=== PATIENT | female | born 1980 | race Caucasian/White ===

== ENCOUNTER 2020-06-04 09:37 | Emergency (ER) | payer OTHER ==
[2020-06-04 09:49] VITALS: BP 109/56; PULSE 118; TEMP 98; BMI 24.7
[2020-06-04] MEDS ORDERED: IBUPROFEN 600 MG TABLET (FP) PO ONE ×3 (10:01→10:29)
== END 2020-06-04 11:51 | disposition home or self-care (01) ==
LOC: JER 09:37
DX: J18.1 Lobar pneumonia, unspecified organism (principal)
CPT/HCPCS: 71045-TC-FY; 87804; 99284-25; C9803; U0003

== ENCOUNTER 2020-06-16 14:29 | Inpatient (IN) | payer OTHER ==
[2020-06-16 16:51] LABS: BASO % 0.6 % (0-2.0); EOS % 0.1 % (0-4.5); HEMATOCRIT 32.9 % (32.4-45.2); HEMOGLOBIN 10.8 GM/dL (10.7-15.3); LYMPH % 12.2 % (8-40); MCH 26.2 pg (25.7-33.7); MCHC 32.9 g/dl (32.0-36.0); MEAN CELL VOLUME 79.6 fl (80-96); MEAN PLT VOLUME 6.8 fl (7.5-11.1); NEUT % 77.1 % (42.8-82.8); PLATELET COUNT 658 K/MM3 (134-434); RBC 4.13 M/mm3 (3.60-5.2); RDW 14.7 % (11.6-15.6)
[2020-06-16 17:06] LABS: INR 1.27 (0.83-1.09); PROTHROMBIN TIME (PATIENT) 15.3 SEC (9.7-13.0)
[2020-06-16 17:08] LABS: CHLORIDE 101 mmol/L (98-107); POTASSIUM 3.8 mmol/L (3.5-5.1); SODIUM 136 mmol/L (136-145)
[2020-06-16 17:11] LABS: ALBUMIN 2.1 g/dl (3.4-5.0); ANION GAP 9 MMOL/L (8-16); CO2 26 mmol/L (21-32); GLUCOSE,RANDOM 117 mg/dL (74-106)
[2020-06-16 17:14] LABS: CREATININE 0.6 mg/dL (0.55-1.3); SGOT/AST 118 U/L (15-37); SGPT/ALT 98 U/L (13-61)
[2020-06-16 17:16] LABS: BILIRUBIN,TOTAL 0.2 mg/dL (0.2-1); TOT PROT 7.5 g/dl (6.4-8.2)
[2020-06-16 17:17] LABS: ALK PHOS 83 U/L (45-117)
[2020-06-16] MEDS ORDERED: VANCOMYCIN 1 GM in D5W (PRE-DOCKED) 1,000 MG/250 ML IVPB ONE (18:24)
[2020-06-16] MEDS ORDERED: PIPERACILLIN/TAZOB 3.375 GM 3.375 GM in DEXTROSE 5%-WATER - 50 ML IVPB ONE (18:24)
[2020-06-16] MEDS ORDERED: PIPERACILLIN/TAZOB 3.375 GM 3.375 GM/50 ML BAG IVPB ONE (19:09)
[2020-06-16] MEDS ORDERED: VANCOMYCIN 1 GRAM (PRE-DOCKED) 1,000 MG/250 ML BAG IVPB ONE (19:48)
[2020-06-16] MEDS ORDERED: KETOROLAC TROMETHAMINE 15 MG/ML VIAL IVPUSH ONE (21:03)
[2020-06-16] MEDS ORDERED: KETOROLAC TROMETHAMINE 15 MG/ML VIAL ONE (21:03)
[2020-06-16] MEDS ORDERED: MORPHINE SULFATE 2 MG/ML VIAL IVPUSH PRN (23:22)
[2020-06-16] MEDS ORDERED: ALBUTEROL SO4 HFA INHALER IH PRN (23:22)
[2020-06-16] MEDS ORDERED: VANCOMYCIN 1 GM PREMIX - 1 GM/200 ML BAG IVPB SCH (23:30)
[2020-06-17] MEDS ORDERED: PIPERACILLIN/TAZOB 3.375 GM 3.375 GM in DEXTROSE 5%-WATER - 50 ML IVPB SCH (02:00)
[2020-06-17] MEDS ORDERED: PIPERACILLIN/TAZOB 3.375 GM 3.375 GM/50 ML BAG IVPB ONE ×3 (02:35→17:34)
[2020-06-17] MEDS: PIPERACILLIN/TAZOB 3.375 GM 3.375 GM in DEXTROSE 5%-WATER - 50 ML IVPB SCH ×4 (02:41→21:36)
[2020-06-17] MEDS ORDERED: VANCOMYCIN 1 GRAM (PRE-DOCKED) 1,000 MG/250 ML BAG IVPB SCH (08:00)
[2020-06-17 08:07] LABS: BASO % 0.2 % (0-2.0); HEMATOCRIT 31.4 % (32.4-45.2); HEMOGLOBIN 10.3 GM/dL (10.7-15.3); LYMPH % 12.2 % (8-40); MCH 26.3 pg (25.7-33.7); MCHC 32.8 g/dl (32.0-36.0); MEAN CELL VOLUME 80.3 fl (80-96); MONO % 9.6 % (3.8-10.2); PLATELET COUNT 576 K/MM3 (134-434); RBC 3.92 M/mm3 (3.60-5.2); RDW 14.7 % (11.6-15.6); WHITE BLOOD COUNT 13.1 K/mm3 (4.0-10.0)
[2020-06-17 08:29] LABS: POTASSIUM 3.9 mmol/L (3.5-5.1)
[2020-06-17 08:31] LABS: CALCIUM 7.8 mg/dL (8.5-10.1)
[2020-06-17 08:32] LABS: BLOOD UREA NITROGEN 21.2 mg/dL (7-18)
[2020-06-17 08:35] LABS: CREATININE 1.6 mg/dL (0.55-1.3)
[2020-06-17 08:37] LABS: BILIRUBIN,TOTAL 0.3 mg/dL (0.2-1); TOT PROT 6.7 g/dl (6.4-8.2)
[2020-06-17] MEDS ORDERED: VANCOMYCIN 1 GRAM (PRE-DOCKED) 1,000 MG/250 ML BAG IVPB ONE (10:11)
[2020-06-17] MEDS ORDERED: ENOXAPARIN NA (PORCINE) 40 MG/0.4 ML DISP.SYRIN SQ ONE (10:28)
[2020-06-17] MEDS: ENOXAPARIN NA (PORCINE) 40 MG/0.4 ML DISP.SYRIN SQ SCH (12:00)
[2020-06-17] MEDS ORDERED: ALBUTEROL SO4 HFA INHALER IH ONE (18:01)
[2020-06-17] MEDS ORDERED: DEXTROSE 5%-WATER - 50 ML IVPB ONE (20:26)
[2020-06-17] MEDS ORDERED: PIPERACILLIN/TAZOBACTAM 3.375 GM VIAL IVPB ONE (20:26)
[2020-06-18] MEDS ORDERED: DEXTROSE 5%-WATER - 50 ML IVPB ONE ×3 (01:38→21:47)
[2020-06-18] MEDS ORDERED: PIPERACILLIN/TAZOBACTAM 3.375 GM VIAL IVPB ONE ×2 (01:38→10:04)
[2020-06-18] MEDS: PIPERACILLIN/TAZOB 3.375 GM 3.375 GM in DEXTROSE 5%-WATER - 50 ML IVPB SCH ×2 (02:43→10:19)
[2020-06-18 08:49] LABS: BASO % 0.1 % (0-2.0); HEMATOCRIT 31.1 % (32.4-45.2); HEMOGLOBIN 10.3 GM/dL (10.7-15.3); LYMPH % 16.2 % (8-40); MCH 26.4 pg (25.7-33.7); MEAN CELL VOLUME 80.1 fl (80-96); MEAN PLT VOLUME 6.9 fl (7.5-11.1); MONO % 8.7 % (3.8-10.2); PLATELET COUNT 492 K/MM3 (134-434); RBC 3.89 M/mm3 (3.60-5.2); RDW 14.6 % (11.6-15.6); WHITE BLOOD COUNT 9.4 K/mm3 (4.0-10.0)
[2020-06-18 08:55] LABS: INR 1.26 (0.83-1.09); PROTHROMBIN TIME (PATIENT) 15.1 SEC (9.7-13.0)
[2020-06-18] MEDS ORDERED: VANCOMYCIN 1 GRAM (PRE-DOCKED) 1,000 MG/250 ML BAG IVPB SCH (10:00)
[2020-06-18] MEDS: ENOXAPARIN NA (PORCINE) 40 MG/0.4 ML DISP.SYRIN SQ SCH (10:19)
[2020-06-18 10:32] LABS: POTASSIUM 4.1 mmol/L (3.5-5.1)
[2020-06-18 10:36] LABS: CALCIUM 7.8 mg/dL (8.5-10.1)
[2020-06-18 10:37] LABS: ALBUMIN 1.6 g/dl (3.4-5.0)
[2020-06-18 10:42] LABS: BILIRUBIN,TOTAL 0.4 mg/dL (0.2-1); CREATININE 4.5 mg/dL (0.55-1.3); TOT PROT 6.1 g/dl (6.4-8.2)
[2020-06-18 12:49] LABS: ANISOCYTOSIS 2+; MACROCYTOSIS 0; PLATELET ESTIMATE INCREASED
[2020-06-18] MEDS ORDERED: SODIUM CHLORIDE 500 ML IV STA (14:39)
[2020-06-18] MEDS ORDERED: SODIUM CHLORIDE 1,000 ML IV SCH (14:45)
[2020-06-18] MEDS ORDERED: ACETAMINOPHEN 1000 MG/100 ML VIAL (NON FORMULARY) IVPB PRN (16:23)
[2020-06-18] MEDS: SODIUM CHLORIDE 1,000 ML IV SCH (17:20)
[2020-06-18] MEDS ORDERED: PIPERACILLIN/TAZOBACTAM 2.25 GM VIAL IVPB ONE (21:47)
[2020-06-18] MEDS: HEPARIN NA (PORCINE) 5,000 UNITS/ML 1ML VIAL SQ SCH (21:53)
[2020-06-18] MEDS: PIPERACILLIN/TAZOB 2.25 GM 2.25 GM in DEXTROSE 5%-WATER - 50 ML IVPB SCH (21:53)
[2020-06-18 22:09] LABS: EPI CELLS 6 /uL (0-25.1); HYALINE CASTS 1 /uL (0-3.1); PH,URINE 5.5 (5.0-8.0); URINE APPEARANCE CLEAR; URINE BACTERIA 5 /uL (0-1359); URINE BILIRUBIN NEGATIVE (NEGATIVE); URINE COLOR YELLOW; URINE GLUCOSE (UA) NEGATIVE (NEGATIVE); URINE KETONE NEGATIVE (NEGATIVE); URINE LEUK ESTERASE NEGATIVE (NEGATIVE); URINE NITRITE NEGATIVE (NEGATIVE); URINE PROTEIN NEGATIVE (NEGATIVE); URINE RBC 11 /uL (0-23.9); URINE UROBILINOGEN 0.2 mg/dL (0.2-1.0); URINE WBC 7 /uL (0-25.8)
[2020-06-19] MEDS ORDERED: PIPERACILLIN/TAZOBACTAM 2.25 GM VIAL IVPB ONE ×3 (03:24→18:15)
[2020-06-19] MEDS ORDERED: DEXTROSE 5%-WATER - 50 ML IVPB ONE ×3 (03:25→18:15)
[2020-06-19] MEDS: PIPERACILLIN/TAZOB 2.25 GM 2.25 GM in DEXTROSE 5%-WATER - 50 ML IVPB SCH ×3 (03:33→18:17)
[2020-06-19] MEDS: HEPARIN NA (PORCINE) 5,000 UNITS/ML 1ML VIAL SQ SCH (05:38)
[2020-06-19 07:09] LABS: BASO % 0.2 % (0-2.0); EOS % 1.9 % (0-4.5); HEMATOCRIT 35.7 % (32.4-45.2); HEMOGLOBIN 11.4 GM/dL (10.7-15.3); LYMPH % 11.9 % (8-40); MCH 25.5 pg (25.7-33.7); MCHC 31.9 g/dl (32.0-36.0); MEAN CELL VOLUME 79.9 fl (80-96); MEAN PLT VOLUME 6.9 fl (7.5-11.1); MONO % 5.9 % (3.8-10.2); NEUT % 80.1 % (42.8-82.8); PLATELET COUNT 550 K/MM3 (134-434); RBC 4.47 M/mm3 (3.60-5.2); WHITE BLOOD COUNT 11.4 K/mm3 (4.0-10.0)
[2020-06-19 07:14] LABS: POTASSIUM 4.2 mmol/L (3.5-5.1)
[2020-06-19 07:18] LABS: ALBUMIN 1.7 g/dl (3.4-5.0); CALCIUM 7.7 mg/dL (8.5-10.1)
[2020-06-19 07:19] LABS: BLOOD UREA NITROGEN 38.7 mg/dL (7-18); MAGNESIUM 2.1 mg/dL (1.8-2.4)
[2020-06-19 07:22] LABS: BILIRUBIN,TOTAL 0.3 mg/dL (0.2-1); CREATININE 5.6 mg/dL (0.55-1.3); PHOSPHOROUS 6.2 mg/dL (2.5-4.9); TOT PROT 6.6 g/dl (6.4-8.2)
[2020-06-19] MEDS ORDERED: MIDAZOLAM HCL 2 MG/2 ML SINGLE DOSE VIAL ONE (08:41)
[2020-06-19] MEDS ORDERED: LIDOCAINE HCL/PF 2% SDV 5ML VIAL ONE ×2 (08:45→11:35)
[2020-06-19] MEDS ORDERED: ONDANSETRON 4 MG/2 ML VIAL ONE (08:45)
[2020-06-19] MEDS ORDERED: KETOROLAC TROMETHAMINE 30 MG/1 ML VIAL ONE (08:45)
[2020-06-19] MEDS ORDERED: PROPOFOL 20 ML ONE ×2 (08:45)
[2020-06-19] MEDS ORDERED: SUCCINYLCHOLINE CHLORIDE 200 MG/10 ML SYRINGE ONE ×2 (08:46→12:44)
[2020-06-19] MEDS ORDERED: ROCURONIUM BROMIDE 100 MG/10 ML VIAL ONE ×4 (08:46→12:44)
[2020-06-19] MEDS ORDERED: EPHEDRINE SULFATE/0.9% NACL/PF 50 MG/10 ML SYRINGE NR ONE (09:15)
[2020-06-19] MEDS ORDERED: GLYCOPYRROLATE 0.2 MG/1 ML VIAL ONE (09:16)
[2020-06-19] MEDS ORDERED: NEOSTIGMINE METHYLSULFATE 0.5 MG/ML - 10 ML MDV ONE (09:16)
[2020-06-19] MEDS ORDERED: ceFAZolin SODIUM 1 GM VIAL IVPB ONE (10:25)
[2020-06-19] MEDS ORDERED: SODIUM CHLORIDE 0.9% P/F 10 ML VIAL IJ ONE (11:09)
[2020-06-19] MEDS ORDERED: ceFAZolin SODIUM 1 GM VIAL ONE (11:09)
[2020-06-19] MEDS ORDERED: VASOPRESSIN 20 UNITS/ML VIAL IV ONE (12:12)
[2020-06-19] MEDS ORDERED: LIDOCAINE 1%/EPI 1:100000 (20 ML MULTI DOSE VIAL) IJ ONE (12:21)
[2020-06-19] MEDS ORDERED: BUPIVACAINE HCL/PF 2.5 MG/ML - 30 ML VIAL IJ ONE (12:22)
[2020-06-19] MEDS: SODIUM CHLORIDE 1,000 ML IV SCH (14:00)
[2020-06-19 14:28] LABS: BASO % 0.2 % (0-2.0); EOS % 0.5 % (0-4.5); HEMATOCRIT 26.5 % (32.4-45.2); HEMOGLOBIN 8.3 GM/dL (10.7-15.3); LYMPH % 5.2 % (8-40); MCHC 31.2 g/dl (32.0-36.0); MEAN CELL VOLUME 80.3 fl (80-96); MEAN PLT VOLUME 6.8 fl (7.5-11.1); MONO % 2.8 % (3.8-10.2); NEUT % 91.3 % (42.8-82.8); PLATELET COUNT 501 K/MM3 (134-434); RDW 14.9 % (11.6-15.6); WHITE BLOOD COUNT 28.6 K/mm3 (4.0-10.0)
[2020-06-19 14:51] LABS: POTASSIUM 4.5 mmol/L (3.5-5.1)
[2020-06-19] MEDS: PROPOFOL 1,000,000 MCG/100 ML VIAL IVPB SCH (14:51)
[2020-06-19 14:54] LABS: BLOOD UREA NITROGEN 35.9 mg/dL (7-18)
[2020-06-19 14:55] LABS: ANISOCYTOSIS 0; MACROCYTOSIS 0; PLATELET ESTIMATE INCREASED
[2020-06-19 14:56] LABS: CREATININE 4.5 mg/dL (0.55-1.3)
[2020-06-19] MEDS: FENTANYL NS IVPB 500 MCG/100 ML BAG IVPB SCH (15:24)
[2020-06-19] MEDS ORDERED: LACTATED RINGERS SOLUTION 1,000 ML/1,000 ML INFUS.BAG IV STA (15:46)
[2020-06-19 16:47] LABS: ARTERIAL BLD GAS O2 SATURATION 97.8 mmHg (95-98); ARTERIAL BLOOD GAS BASE EXCESS -10.1 mmol/L (-2-2); ARTERIAL BLOOD GAS PO2 126.9 mmHg (80-100); ARTERIAL BLOOD GAS pH 7.201 (7.350-7.450)
[2020-06-19 16:55] LABS: VENT RATE 14
[2020-06-19 16:56] LABS: VENT MODE A/C
[2020-06-19 19:20] LABS: ARTERIAL BLD GAS O2 SATURATION 98.5 mmHg (95-98); ARTERIAL BLOOD GAS BASE EXCESS -8.5 mmol/L (-2-2); ARTERIAL BLOOD GAS PO2 136.1 mmHg (80-100); ARTERIAL BLOOD GAS pH 7.291 (7.350-7.450)
[2020-06-19 19:21] LABS: VENT MODE A/C
[2020-06-19 19:22] LABS: VENT RATE 14
[2020-06-19] MEDS ORDERED: LACTATED RINGERS SOLUTION 1,000 ML/1,000 ML INFUS.BAG IV ONE (19:32)
[2020-06-19 19:56] LABS: HEMATOCRIT 29.1 % (32.4-45.2); HEMOGLOBIN 9.2 GM/dL (10.7-15.3); MCH 25.8 pg (25.7-33.7); MCHC 31.5 g/dl (32.0-36.0); MEAN PLT VOLUME 6.8 fl (7.5-11.1); PLATELET COUNT 428 K/MM3 (134-434); RBC 3.55 M/mm3 (3.60-5.2); RDW 14.8 % (11.6-15.6)
[2020-06-19 20:22] LABS: WHITE BLOOD COUNT 34.5 K/mm3 (4.0-10.0)
[2020-06-19] MEDS ORDERED: LACTATED RINGERS SOLUTION 1000 ML INFUS.BAG IV ONE (20:54)
[2020-06-19] MEDS: VASOPRESSIN 40 UNITS in SODIUM CHLORIDE 98 ML IVPB SCH (21:08)
[2020-06-19] MEDS: MUPIROCIN 2% TOPICAL OINTMENT FOR DECOLONIZATION NS SCH (21:29)
[2020-06-19] MEDS: CHLORHEXIDINE GLUCONATE 4% CLEANSER FOR DECOLONIZATION TP SCH (21:29)
[2020-06-20] MEDS ORDERED: LACTATED RINGERS SOLUTION 1000 ML INFUS.BAG IV ONE ×3 (00:09→07:34)
[2020-06-20] MEDS: IPRATROPIUM BR 0.02% 0.5 MG/2.5 ML VIAL.NEB. NEB SCH ×2 (01:00→19:37)
[2020-06-20] MEDS ORDERED: DEXTROSE 5%-WATER - 50 ML IVPB ONE ×3 (02:23→17:48)
[2020-06-20] MEDS ORDERED: FENTANYL IVPB 500 MCG/100 ML BAG IVPB ONE ×2 (02:23→09:42)
[2020-06-20] MEDS ORDERED: PIPERACILLIN/TAZOBACTAM 2.25 GM VIAL IVPB ONE ×3 (02:23→17:48)
[2020-06-20] MEDS: PIPERACILLIN/TAZOB 2.25 GM 2.25 GM in DEXTROSE 5%-WATER - 50 ML IVPB SCH ×3 (02:26→17:50)
[2020-06-20] MEDS: FENTANYL NS IVPB 500 MCG/100 ML BAG IVPB SCH ×3 (02:26→19:15)
[2020-06-20 05:55] LABS: ARTERIAL BLD GAS O2 SATURATION 99.2 mmHg (95-98); ARTERIAL BLOOD GAS PO2 172.4 mmHg (80-100); ARTERIAL BLOOD GAS pH 7.402 (7.350-7.450)
[2020-06-20 05:58] LABS: VENT MODE A/C; VENT RATE 14
[2020-06-20 07:09] LABS: POTASSIUM 4.7 mmol/L (3.5-5.1)
[2020-06-20 07:11] LABS: MAGNESIUM 1.3 mg/dL (1.8-2.4)
[2020-06-20 07:13] LABS: ALBUMIN 1.2 g/dl (3.4-5.0)
[2020-06-20 07:15] LABS: CREATININE 3.9 mg/dL (0.55-1.3)
[2020-06-20 07:16] LABS: PHOSPHOROUS 6.5 mg/dL (2.5-4.9)
[2020-06-20 07:17] LABS: BILIRUBIN,TOTAL 0.3 mg/dL (0.2-1)
[2020-06-20 07:19] LABS: BASO % 0.3 % (0-2.0); EOS % 0.4 % (0-4.5); HEMATOCRIT 21.8 % (32.4-45.2); LYMPH % 10.1 % (8-40); MCH 25.6 pg (25.7-33.7); MCHC 31.8 g/dl (32.0-36.0); MEAN CELL VOLUME 80.6 fl (80-96); MEAN PLT VOLUME 7.2 fl (7.5-11.1); MONO % 4.7 % (3.8-10.2); NEUT % 84.5 % (42.8-82.8); PLATELET COUNT 340 K/MM3 (134-434); RBC 2.71 M/mm3 (3.60-5.2); RDW 15.1 % (11.6-15.6); TOT PROT 4.5 g/dl (6.4-8.2)
[2020-06-20 07:24] LABS: CALCIUM 6.8 mg/dL (8.5-10.1)
[2020-06-20] MEDS ORDERED: SODIUM CHLORIDE 1,000 ML IV STA (07:44)
[2020-06-20 07:45] LABS: HEMOGLOBIN 6.9 GM/dL (10.7-15.3)
[2020-06-20] MEDS ORDERED: PT OWN MED DRAWER 7, Y5N ONE (09:42)
[2020-06-20] MEDS ORDERED: PANTOPRAZOLE SODIUM 40 MG VIAL IVPUSH SCH (10:00)
[2020-06-20] MEDS: MUPIROCIN 2% TOPICAL OINTMENT FOR DECOLONIZATION NS SCH ×2 (10:12→21:13)
[2020-06-20 10:50] LABS: ANISOCYTOSIS 1+; MACROCYTOSIS 1+; PLATELET ESTIMATE NORMAL
[2020-06-20] MEDS ORDERED: MAGNESIUM SULF 50% (8.12 MEQ/2 ML-1 GM VIAL) IVPB ONE (13:15)
[2020-06-20 15:01] LABS: HEMATOCRIT 20.6 % (32.4-45.2); MCH 25.2 pg (25.7-33.7); MCHC 31.6 g/dl (32.0-36.0); MEAN CELL VOLUME 79.9 fl (80-96); MEAN PLT VOLUME 6.8 fl (7.5-11.1); PLATELET COUNT 318 K/MM3 (134-434); RBC 2.58 M/mm3 (3.60-5.2); WHITE BLOOD COUNT 16.7 K/mm3 (4.0-10.0)
[2020-06-20 15:27] LABS: HEMOGLOBIN 6.5 GM/dL (10.7-15.3)
[2020-06-20 15:50] VITALS: BMI 29.6
[2020-06-20] MEDS: ACETAMINOPHEN 325 MG TABLET (FP) PO SCH (17:51)
[2020-06-20] MEDS: SODIUM CHLORIDE 1,000 ML IV SCH (17:52)
[2020-06-20] MEDS ORDERED: MAGNESIUM SULF 50% (8.12 MEQ/2 ML-1 GM VIAL) ONE ×2 (17:54→18:11)
[2020-06-20] MEDS: PROPOFOL 1,000,000 MCG/100 ML VIAL IVPB SCH (19:15)
[2020-06-20] MEDS ORDERED: ALBUTEROL SO4 HFA INHALER IH PRN (20:06)
[2020-06-20] MEDS ORDERED: SODIUM CHLORIDE 1,000 ML IV SCH (20:06)
[2020-06-20] MEDS: VASOPRESSIN 40 UNITS in SODIUM CHLORIDE 98 ML IVPB SCH (21:00)
[2020-06-20] MEDS: CHLORHEXIDINE GLUCONATE 4% CLEANSER FOR DECOLONIZATION TP SCH (21:13)
[2020-06-20 23:04] LABS: HEMATOCRIT 24.3 % (32.4-45.2); HEMOGLOBIN 7.8 GM/dL (10.7-15.3); MCH 26.2 pg (25.7-33.7); MEAN CELL VOLUME 81.8 fl (80-96); PLATELET COUNT 294 K/MM3 (134-434); RBC 2.97 M/mm3 (3.60-5.2); RDW 14.7 % (11.6-15.6); WHITE BLOOD COUNT 16.7 K/mm3 (4.0-10.0)
[2020-06-21] MEDS ORDERED: PIPERACILLIN/TAZOBACTAM 2.25 GM VIAL IVPB ONE ×4 (00:10→23:35)
[2020-06-21] MEDS ORDERED: DEXTROSE 5%-WATER - 50 ML IVPB ONE ×4 (00:10→23:35)
[2020-06-21] MEDS: ACETAMINOPHEN 325 MG TABLET (FP) PO SCH ×5 (00:30→23:37)
[2020-06-21] MEDS: IPRATROPIUM BR 0.02% 0.5 MG/2.5 ML VIAL.NEB. NEB SCH ×3 (00:31→12:04)
[2020-06-21] MEDS: PIPERACILLIN/TAZOB 2.25 GM 2.25 GM in DEXTROSE 5%-WATER - 50 ML IVPB SCH ×3 (01:32→17:38)
[2020-06-21 07:26] LABS: BASO % 0.3 % (0-2.0); HEMATOCRIT 25.5 % (32.4-45.2); HEMOGLOBIN 8.2 GM/dL (10.7-15.3); LYMPH % 9.7 % (8-40); MCH 26.2 pg (25.7-33.7); MCHC 32.2 g/dl (32.0-36.0); MEAN CELL VOLUME 81.3 fl (80-96); MEAN PLT VOLUME 7.1 fl (7.5-11.1); MONO % 4.7 % (3.8-10.2); NEUT % 83.3 % (42.8-82.8); PLATELET COUNT 298 K/MM3 (134-434); RBC 3.13 M/mm3 (3.60-5.2); RDW 14.6 % (11.6-15.6)
[2020-06-21 07:29] LABS: POTASSIUM 3.3 mmol/L (3.5-5.1)
[2020-06-21 07:37] LABS: ALBUMIN 1.3 g/dl (3.4-5.0); BLOOD UREA NITROGEN 22.4 mg/dL (7-18); MAGNESIUM 1.8 mg/dL (1.8-2.4)
[2020-06-21 07:41] LABS: BILIRUBIN,TOTAL 0.4 mg/dL (0.2-1); PHOSPHOROUS 3.9 mg/dL (2.5-4.9); TOT PROT 4.9 g/dl (6.4-8.2)
[2020-06-21 07:52] LABS: CALCIUM 6.8 mg/dL (8.5-10.1)
[2020-06-21] MEDS ORDERED: PT OWN MED DRAWER 7, Y5N ONE (09:13)
[2020-06-21] MEDS: PANTOPRAZOLE SODIUM 40 MG VIAL IVPUSH SCH (09:32)
[2020-06-21 10:13] LABS: ANISOCYTOSIS 1+; MACROCYTOSIS 0; PLATELET ESTIMATE NORMAL
[2020-06-21] MEDS: oxyCODONE HCL 5 MG TABLET PO PRN ×2 (11:10→23:40)
[2020-06-21] MEDS: KCL 10 MEQ IVPB 10 MEQ/100 ML INFUS.BAG IVPB SCH ×2 (11:14→12:22)
[2020-06-21] MEDS: MUPIROCIN 2% TOPICAL OINTMENT FOR DECOLONIZATION NS SCH ×2 (13:44→22:00)
[2020-06-21] MEDS: VASOPRESSIN 40 UNITS in SODIUM CHLORIDE 98 ML IVPB SCH (21:58)
[2020-06-21] MEDS: CHLORHEXIDINE GLUCONATE 4% CLEANSER FOR DECOLONIZATION TP SCH (22:00)
[2020-06-22] MEDS: PIPERACILLIN/TAZOB 2.25 GM 2.25 GM in DEXTROSE 5%-WATER - 50 ML IVPB SCH ×3 (02:21→18:02)
[2020-06-22] MEDS: ACETAMINOPHEN 325 MG TABLET (FP) PO SCH ×3 (05:39→17:55)
[2020-06-22 07:19] LABS: BASO % 0.3 % (0-2.0); EOS % 2.8 % (0-4.5); HEMATOCRIT 26.7 % (32.4-45.2); HEMOGLOBIN 8.7 GM/dL (10.7-15.3); LYMPH % 9.3 % (8-40); MCH 26.3 pg (25.7-33.7); MCHC 32.5 g/dl (32.0-36.0); MEAN CELL VOLUME 81.1 fl (80-96); MONO % 4.7 % (3.8-10.2); NEUT % 82.9 % (42.8-82.8); PLATELET COUNT 292 K/MM3 (134-434); RBC 3.28 M/mm3 (3.60-5.2); RDW 14.8 % (11.6-15.6); WHITE BLOOD COUNT 14.2 K/mm3 (4.0-10.0)
[2020-06-22 08:02] LABS: ALBUMIN 1.5 g/dl (3.4-5.0); BILIRUBIN,TOTAL 0.5 mg/dL (0.2-1); BLOOD UREA NITROGEN 18.9 mg/dL (7-18); CALCIUM 7.4 mg/dL (8.5-10.1); CREATININE 2.2 mg/dL (0.55-1.3); MAGNESIUM 1.4 mg/dL (1.8-2.4); PHOSPHOROUS 3.7 mg/dL (2.5-4.9); POTASSIUM 3.5 mmol/L (3.5-5.1); TOT PROT 5.5 g/dl (6.4-8.2)
[2020-06-22] MEDS ORDERED: MAGNESIUM SULF 50% (8.12 MEQ/2 ML-1 GM VIAL) IVPB ONE (08:34)
[2020-06-22] MEDS ORDERED: MAGNESIUM 1GM/D5W - 1 GM/100 ML IVPB IVPB ONE (08:45)
[2020-06-22] MEDS: IPRATROPIUM BR 0.02% 0.5 MG/2.5 ML VIAL.NEB. NEB SCH ×2 (09:02→12:00)
[2020-06-22] MEDS ORDERED: DEXTROSE 5%-WATER - 50 ML IVPB ONE ×3 (09:25→20:59)
[2020-06-22] MEDS ORDERED: PIPERACILLIN/TAZOBACTAM 2.25 GM VIAL IVPB ONE ×3 (09:25→20:58)
[2020-06-22] MEDS: HEPARIN NA (PORCINE) 5,000 UNITS/ML 1ML VIAL SQ SCH ×2 (09:36→21:11)
[2020-06-22] MEDS: PANTOPRAZOLE SODIUM 40 MG VIAL IVPUSH SCH (09:38)
[2020-06-22] MEDS: MUPIROCIN 2% TOPICAL OINTMENT FOR DECOLONIZATION NS SCH ×2 (09:41→21:12)
[2020-06-22] MEDS: oxyCODONE HCL 5 MG TABLET PO PRN ×3 (09:54→21:12)
[2020-06-22 10:01] LABS: ANISOCYTOSIS 0; MACROCYTOSIS 0; PLATELET ESTIMATE NORMAL
[2020-06-22] MEDS: CHLORHEXIDINE GLUCONATE 4% CLEANSER FOR DECOLONIZATION TP SCH (21:12)
[2020-06-23] MEDS: ACETAMINOPHEN 325 MG TABLET (FP) PO SCH ×4 (00:32→18:16)
[2020-06-23] MEDS: IPRATROPIUM BR 0.02% 0.5 MG/2.5 ML VIAL.NEB. NEB SCH ×6 (00:40→20:50)
[2020-06-23] MEDS: PIPERACILLIN/TAZOB 2.25 GM 2.25 GM in DEXTROSE 5%-WATER - 50 ML IVPB SCH ×3 (01:32→17:56)
[2020-06-23] MEDS: oxyCODONE HCL 5 MG TABLET PO PRN ×4 (05:11→16:01)
[2020-06-23 07:27] LABS: BASO % 0.3 % (0-2.0); EOS % 2.8 % (0-4.5); HEMATOCRIT 27.3 % (32.4-45.2); HEMOGLOBIN 8.7 GM/dL (10.7-15.3); LYMPH % 10.1 % (8-40); MCH 25.8 pg (25.7-33.7); MEAN CELL VOLUME 80.7 fl (80-96); MEAN PLT VOLUME 7.1 fl (7.5-11.1); MONO % 4.2 % (3.8-10.2); NEUT % 82.6 % (42.8-82.8); PLATELET COUNT 298 K/MM3 (134-434); RBC 3.39 M/mm3 (3.60-5.2); RDW 14.5 % (11.6-15.6); WHITE BLOOD COUNT 12.8 K/mm3 (4.0-10.0)
[2020-06-23 07:29] LABS: POTASSIUM 3.2 mmol/L (3.5-5.1)
[2020-06-23 07:35] LABS: CALCIUM 7.4 mg/dL (8.5-10.1)
[2020-06-23 07:36] LABS: ALBUMIN 1.6 g/dl (3.4-5.0); BLOOD UREA NITROGEN 16.5 mg/dL (7-18); MAGNESIUM 1.6 mg/dL (1.8-2.4)
[2020-06-23 07:39] LABS: BILIRUBIN,TOTAL 0.4 mg/dL (0.2-1); CREATININE 1.8 mg/dL (0.55-1.3); PHOSPHOROUS 4.1 mg/dL (2.5-4.9); TOT PROT 5.8 g/dl (6.4-8.2)
[2020-06-23] MEDS ORDERED: POTASSIUM CHLORIDE TABS 20 MEQ TABLET.ER (FP) PO ONE ×2 (08:37→18:00)
[2020-06-23] MEDS ORDERED: PIPERACILLIN/TAZOBACTAM 2.25 GM VIAL IVPB ONE ×2 (09:43→17:50)
[2020-06-23] MEDS ORDERED: DEXTROSE 5%-WATER - 50 ML IVPB ONE ×2 (09:44→17:50)
[2020-06-23] MEDS: PANTOPRAZOLE SODIUM 40 MG VIAL IVPUSH SCH (09:46)
[2020-06-23] MEDS: HEPARIN NA (PORCINE) 5,000 UNITS/ML 1ML VIAL SQ SCH ×2 (09:48→22:00)
[2020-06-23] MEDS: MUPIROCIN 2% TOPICAL OINTMENT FOR DECOLONIZATION NS SCH ×2 (09:50→22:01)
[2020-06-23] MEDS: KCL 10 MEQ IVPB 10 MEQ/100 ML INFUS.BAG IVPB SCH ×4 (09:50→14:30)
[2020-06-23 11:36] LABS: ANISOCYTOSIS 0; MACROCYTOSIS 0; PLATELET ESTIMATE NORMAL
[2020-06-23] MEDS ORDERED: MAGNESIUM 2GM/50ML STERILE WATER IVPB IVPB ONE (14:45)
[2020-06-23] MEDS: CHLORHEXIDINE GLUCONATE 4% CLEANSER FOR DECOLONIZATION TP SCH (22:01)
[2020-06-24] MEDS: ACETAMINOPHEN 325 MG TABLET (FP) PO SCH ×4 (00:07→18:00)
[2020-06-24] MEDS ORDERED: PIPERACILLIN/TAZOBACTAM 2.25 GM VIAL IVPB ONE ×3 (01:01→17:10)
[2020-06-24] MEDS ORDERED: DEXTROSE 5%-WATER - 50 ML IVPB ONE ×3 (01:02→17:11)
[2020-06-24] MEDS: oxyCODONE HCL 5 MG TABLET PO PRN ×3 (01:03→21:08)
[2020-06-24] MEDS: guaiFENesin/D-METHORPHAN TAB.ER.12H PO PRN (01:04)
[2020-06-24] MEDS: PIPERACILLIN/TAZOB 2.25 GM 2.25 GM in DEXTROSE 5%-WATER - 50 ML IVPB SCH ×3 (01:13→17:17)
[2020-06-24 07:04] LABS: BASO % 0.7 % (0-2.0); EOS % 3.4 % (0-4.5); HEMATOCRIT 29.1 % (32.4-45.2); HEMOGLOBIN 9.2 GM/dL (10.7-15.3); LYMPH % 15.2 % (8-40); MCH 25.7 pg (25.7-33.7); MCHC 31.4 g/dl (32.0-36.0); MEAN CELL VOLUME 81.9 fl (80-96); MEAN PLT VOLUME 7.1 fl (7.5-11.1); MONO % 4.3 % (3.8-10.2); NEUT % 76.4 % (42.8-82.8); PLATELET COUNT 298 K/MM3 (134-434); RBC 3.56 M/mm3 (3.60-5.2); RDW 15.2 % (11.6-15.6); WHITE BLOOD COUNT 10.4 K/mm3 (4.0-10.0)
[2020-06-24 07:15] LABS: POTASSIUM 4.1 mmol/L (3.5-5.1)
[2020-06-24 07:22] LABS: CALCIUM 8.1 mg/dL (8.5-10.1)
[2020-06-24 07:23] LABS: ALBUMIN 1.8 g/dl (3.4-5.0); MAGNESIUM 1.7 mg/dL (1.8-2.4)
[2020-06-24 07:26] LABS: CREATININE 1.7 mg/dL (0.55-1.3); PHOSPHOROUS 3.8 mg/dL (2.5-4.9)
[2020-06-24 07:27] LABS: BILIRUBIN,TOTAL 0.7 mg/dL (0.2-1)
[2020-06-24 07:28] LABS: TOT PROT 6.5 g/dl (6.4-8.2)
[2020-06-24] MEDS: IPRATROPIUM BR 0.02% 0.5 MG/2.5 ML VIAL.NEB. NEB SCH ×4 (07:40→21:22)
[2020-06-24] MEDS: HEPARIN NA (PORCINE) 5,000 UNITS/ML 1ML VIAL SQ SCH ×2 (09:11→21:09)
[2020-06-24] MEDS: PANTOPRAZOLE SODIUM 40 MG VIAL IVPUSH SCH (09:11)
[2020-06-24 10:20] LABS: ANISOCYTOSIS 0; MACROCYTOSIS 0; PLATELET ESTIMATE NORMAL
[2020-06-24] MEDS: MUPIROCIN 2% TOPICAL OINTMENT FOR DECOLONIZATION NS SCH (11:08)
[2020-06-24] MEDS ORDERED: MAGNESIUM SULF 50% (8.12 MEQ/2 ML-1 GM VIAL) IVPB ONE (18:00)
[2020-06-24] MEDS ORDERED: CLINDAMYCIN 600MG PREMIX IVPB 600 MG/50 ML BAG IVPB SCH (18:00)
[2020-06-24] MEDS ORDERED: MAGNESIUM 1GM/D5W - 1 GM/100 ML IVPB IVPB ONE (18:15)
[2020-06-24] MEDS ORDERED: ALBUTEROL SO4 HFA INHALER IH PRN (20:57)
[2020-06-24] MEDS ORDERED: CHLORHEXIDINE GLUCONATE 4% CLEANSER FOR DECOLONIZATION TP SCH (22:00)
[2020-06-24] MEDS ORDERED: MUPIROCIN 2% TOPICAL OINTMENT FOR DECOLONIZATION NS SCH (22:00)
[2020-06-25] MEDS: ACETAMINOPHEN 325 MG TABLET (FP) PO SCH ×4 (00:22→17:44)
[2020-06-25] MEDS ORDERED: PIPERACILLIN/TAZOBACTAM 2.25 GM VIAL IVPB ONE ×3 (01:31→17:49)
[2020-06-25] MEDS ORDERED: DEXTROSE 5%-WATER - 50 ML IVPB ONE ×3 (01:32→17:49)
[2020-06-25] MEDS: PIPERACILLIN/TAZOB 2.25 GM 2.25 GM in DEXTROSE 5%-WATER - 50 ML IVPB SCH ×3 (01:40→17:53)
[2020-06-25 06:57] LABS: BASO % 0.6 % (0-2.0); HEMATOCRIT 26.1 % (32.4-45.2); HEMOGLOBIN 8.6 GM/dL (10.7-15.3); LYMPH % 16.3 % (8-40); MCH 26.9 pg (25.7-33.7); MEAN CELL VOLUME 81.6 fl (80-96); MEAN PLT VOLUME 7.3 fl (7.5-11.1); MONO % 6.1 % (3.8-10.2); PLATELET COUNT 296 K/MM3 (134-434); RBC 3.19 M/mm3 (3.60-5.2); RDW 15.3 % (11.6-15.6); WHITE BLOOD COUNT 10.4 K/mm3 (4.0-10.0)
[2020-06-25 07:11] LABS: ALBUMIN 1.8 g/dl (3.4-5.0); BLOOD UREA NITROGEN 11.4 mg/dL (7-18); CALCIUM 8.2 mg/dL (8.5-10.1)
[2020-06-25 07:14] LABS: CREATININE 1.6 mg/dL (0.55-1.3)
[2020-06-25 07:16] LABS: BILIRUBIN,TOTAL 0.4 mg/dL (0.2-1); TOT PROT 6.4 g/dl (6.4-8.2)
[2020-06-25] MEDS: IPRATROPIUM BR 0.02% 0.5 MG/2.5 ML VIAL.NEB. NEB SCH ×4 (07:30→20:05)
[2020-06-25] MEDS: PANTOPRAZOLE SODIUM 40 MG VIAL IVPUSH SCH (09:04)
[2020-06-25] MEDS: HEPARIN NA (PORCINE) 5,000 UNITS/ML 1ML VIAL SQ SCH ×2 (09:05→22:17)
[2020-06-25] MEDS: oxyCODONE HCL 5 MG TABLET PO PRN ×2 (09:14→22:21)
[2020-06-25 10:39] LABS: ANISOCYTOSIS 0; MACROCYTOSIS 0; PLATELET ESTIMATE NORMAL
[2020-06-25] MEDS: guaiFENesin/D-METHORPHAN TAB.ER.12H PO PRN (18:28)
[2020-06-26] MEDS ORDERED: PIPERACILLIN/TAZOBACTAM 2.25 GM VIAL IVPB ONE ×3 (01:09→17:41)
[2020-06-26] MEDS ORDERED: DEXTROSE 5%-WATER - 50 ML IVPB ONE ×3 (01:10→17:41)
[2020-06-26] MEDS: PIPERACILLIN/TAZOB 2.25 GM 2.25 GM in DEXTROSE 5%-WATER - 50 ML IVPB SCH ×3 (01:21→17:46)
[2020-06-26] MEDS: ACETAMINOPHEN 325 MG TABLET (FP) PO SCH ×4 (01:24→17:45)
[2020-06-26] MEDS ORDERED: PT OWN MED DRAWER 7, Y5N ONE ×2 (05:01→10:07)
[2020-06-26] MEDS: guaiFENesin/D-METHORPHAN TAB.ER.12H PO PRN (05:03)
[2020-06-26] MEDS: IPRATROPIUM BR 0.02% 0.5 MG/2.5 ML VIAL.NEB. NEB SCH ×4 (07:59→21:36)
[2020-06-26] MEDS: PANTOPRAZOLE SODIUM 40 MG VIAL IVPUSH SCH (10:11)
[2020-06-26] MEDS: HEPARIN NA (PORCINE) 5,000 UNITS/ML 1ML VIAL SQ SCH ×2 (10:13→22:23)
[2020-06-26] MEDS: oxyCODONE HCL 5 MG TABLET PO PRN (15:08)
[2020-06-27] MEDS ORDERED: PIPERACILLIN/TAZOBACTAM 2.25 GM VIAL IVPB ONE ×3 (01:08→17:37)
[2020-06-27] MEDS ORDERED: DEXTROSE 5%-WATER - 50 ML IVPB ONE ×3 (01:08→17:37)
[2020-06-27] MEDS: ACETAMINOPHEN 325 MG TABLET (FP) PO SCH ×5 (01:18→23:26)
[2020-06-27] MEDS: PIPERACILLIN/TAZOB 2.25 GM 2.25 GM in DEXTROSE 5%-WATER - 50 ML IVPB SCH ×3 (01:19→17:41)
[2020-06-27] MEDS: IPRATROPIUM BR 0.02% 0.5 MG/2.5 ML VIAL.NEB. NEB SCH (07:39)
[2020-06-27] MEDS ORDERED: PT OWN MED DRAWER 7, Y5N ONE (09:52)
[2020-06-27] MEDS: PANTOPRAZOLE SODIUM 40 MG VIAL IVPUSH SCH (10:03)
[2020-06-27] MEDS: HEPARIN NA (PORCINE) 5,000 UNITS/ML 1ML VIAL SQ SCH ×2 (10:03→21:08)
[2020-06-28] MEDS ORDERED: PIPERACILLIN/TAZOBACTAM 2.25 GM VIAL IVPB ONE ×3 (02:01→17:06)
[2020-06-28] MEDS ORDERED: DEXTROSE 5%-WATER - 50 ML IVPB ONE ×3 (02:01→17:06)
[2020-06-28] MEDS: PIPERACILLIN/TAZOB 2.25 GM 2.25 GM in DEXTROSE 5%-WATER - 50 ML IVPB SCH ×3 (02:15→17:12)
[2020-06-28] MEDS: ACETAMINOPHEN 325 MG TABLET (FP) PO SCH ×3 (05:32→17:11)
[2020-06-28] MEDS: IPRATROPIUM BR 0.02% 0.5 MG/2.5 ML VIAL.NEB. NEB SCH ×4 (07:40→20:43)
[2020-06-28 09:48] LABS: BASO % 0.5 % (0-2.0); EOS % 1.9 % (0-4.5); HEMATOCRIT 26.2 % (32.4-45.2); HEMOGLOBIN 8.6 GM/dL (10.7-15.3); LYMPH % 17.5 % (8-40); MCH 26.7 pg (25.7-33.7); MCHC 32.9 g/dl (32.0-36.0); MEAN CELL VOLUME 81.3 fl (80-96); MEAN PLT VOLUME 7.2 fl (7.5-11.1); MONO % 5.9 % (3.8-10.2); NEUT % 74.2 % (42.8-82.8); PLATELET COUNT 381 K/MM3 (134-434); RBC 3.22 M/mm3 (3.60-5.2); RDW 15.3 % (11.6-15.6); WHITE BLOOD COUNT 8.7 K/mm3 (4.0-10.0)
[2020-06-28] MEDS: PANTOPRAZOLE SODIUM 40 MG VIAL IVPUSH SCH (10:18)
[2020-06-28] MEDS: HEPARIN NA (PORCINE) 5,000 UNITS/ML 1ML VIAL SQ SCH ×2 (10:18→21:33)
[2020-06-28 10:29] LABS: CALCIUM 8.7 mg/dL (8.5-10.1)
[2020-06-28 10:33] LABS: CREATININE 1.1 mg/dL (0.55-1.3)
[2020-06-28 10:34] LABS: TOT PROT 7.2 g/dl (6.4-8.2)
[2020-06-28 10:44] LABS: BILIRUBIN,TOTAL 0.3 mg/dL (0.2-1)
[2020-06-29] MEDS ORDERED: DEXTROSE 5%-WATER - 50 ML IVPB ONE ×3 (01:25→17:10)
[2020-06-29] MEDS ORDERED: PIPERACILLIN/TAZOBACTAM 2.25 GM VIAL IVPB ONE ×3 (01:25→17:10)
[2020-06-29] MEDS: ACETAMINOPHEN 325 MG TABLET (FP) PO SCH ×5 (01:35→23:30)
[2020-06-29] MEDS: PIPERACILLIN/TAZOB 2.25 GM 2.25 GM in DEXTROSE 5%-WATER - 50 ML IVPB SCH ×3 (01:36→17:14)
[2020-06-29] MEDS ORDERED: PT OWN MED DRAWER 7, Y5N ONE (06:14)
[2020-06-29] MEDS: guaiFENesin/D-METHORPHAN TAB.ER.12H PO PRN (06:43)
[2020-06-29] MEDS: IPRATROPIUM BR 0.02% 0.5 MG/2.5 ML VIAL.NEB. NEB SCH ×4 (07:20→20:20)
[2020-06-29] MEDS: PANTOPRAZOLE SODIUM 40 MG VIAL IVPUSH SCH (09:01)
[2020-06-29] MEDS: HEPARIN NA (PORCINE) 5,000 UNITS/ML 1ML VIAL SQ SCH ×2 (09:02→21:10)
[2020-06-30] MEDS ORDERED: PIPERACILLIN/TAZOBACTAM 2.25 GM VIAL IVPB ONE ×3 (00:16→16:56)
[2020-06-30] MEDS ORDERED: DEXTROSE 5%-WATER - 50 ML IVPB ONE ×3 (00:16→16:56)
[2020-06-30] MEDS: PIPERACILLIN/TAZOB 2.25 GM 2.25 GM in DEXTROSE 5%-WATER - 50 ML IVPB SCH ×2 (02:15→09:55)
[2020-06-30] MEDS: ACETAMINOPHEN 325 MG TABLET (FP) PO SCH ×2 (05:28→12:02)
[2020-06-30] MEDS ORDERED: PT OWN MED DRAWER 7, Y5N ONE (05:31)
[2020-06-30] MEDS: guaiFENesin/D-METHORPHAN TAB.ER.12H PO PRN (05:32)
[2020-06-30] MEDS: IPRATROPIUM BR 0.02% 0.5 MG/2.5 ML VIAL.NEB. NEB SCH ×2 (07:35→15:11)
[2020-06-30 08:21] LABS: POTASSIUM 4.5 mmol/L (3.5-5.1)
[2020-06-30 08:34] LABS: ALBUMIN 2.1 g/dl (3.4-5.0); BLOOD UREA NITROGEN 14.5 mg/dL (7-18)
[2020-06-30 08:37] LABS: CREATININE 1.1 mg/dL (0.55-1.3)
[2020-06-30 08:38] LABS: BILIRUBIN,TOTAL 0.6 mg/dL (0.2-1); TOT PROT 7.4 g/dl (6.4-8.2)
[2020-06-30] MEDS: HEPARIN NA (PORCINE) 5,000 UNITS/ML 1ML VIAL SQ SCH (09:54)
[2020-06-30] MEDS: PANTOPRAZOLE SODIUM 40 MG VIAL IVPUSH SCH (09:55)
[2020-06-30 15:07] VITALS: BP 109/68; PULSE 82; TEMP 98.2
== END 2020-06-30 17:11 | disposition home or self-care (01) | DRG 710 ==
LOC: JER 14:29 → JERBED 18:59 → J5S 06-17 19:29 → JICU 06-18 14:07 → J8W 06-24 20:51
PROVIDERS: ADMIT Internal Medicine; ATTEND Internal Medicine
PROC: 0BJ08ZZ Inspection of Tracheobronchial Tree, Via Natural or Artificial Opening Endoscopic (ICD-10-PCS; 2020-06-19)
PROC: 5A1945Z Respiratory Ventilation, 24-96 Consecutive Hours (ICD-10-PCS; 2020-06-19)
PROC: 0BH17EZ Insertion of Endotracheal Airway into Trachea, Via Natural or Artificial Opening (ICD-10-PCS; 2020-06-19)
PROC: 30233N1 Transfusion of Nonautologous Red Blood Cells into Peripheral Vein, Percutaneous Approach (ICD-10-PCS; 2020-06-19)
PROC: 0B9N30Z Drainage of Right Pleura with Drainage Device, Percutaneous Approach (ICD-10-PCS; principal; 2020-06-19 09:00)
PROC: 0BNK3ZZ Release Right Lung, Percutaneous Approach (ICD-10-PCS; 2020-06-19 09:00)
PROC: 02HV33Z Insertion of Infusion Device into Superior Vena Cava, Percutaneous Approach (ICD-10-PCS; 2020-06-30)
DX: A41.9 Sepsis, unspecified organism (principal); R05 Cough; D72.829 Elevated white blood cell count, unspecified; R50.9 Fever, unspecified; Y83.9 Surgical procedure, unspecified as the cause of abnormal reaction of the patient, or of later complication, without mention of misadventure at the time of the procedure; S27.331A Laceration of lung, unilateral, initial encounter; J96.01 Acute respiratory failure with hypoxia; J18.9 Pneumonia, unspecified organism; J86.9 Pyothorax without fistula; N17.9 Acute kidney failure, unspecified; I95.9 Hypotension, unspecified; R79.89 Other specified abnormal findings of blood chemistry; D64.9 Anemia, unspecified
CPT/HCPCS: 31500; 36415; 36430; 36569; 36600; 71045-TC-FY; 71046-TC-FY; 71101-TC-RT-FY; 71250-TC; 76700-TC; 76775-TC; 77001-TC-FY; 80048; 80053; 81003; 82436; 82550; 82565; 82803; 82962; 83605; 83735; 84100; 84133; 84300; 84484; 84703; 85025; 85027; 85610; 86850; 86900; 86901; 86922; 87040; 87070; 87075; 87086; 87102; 87116; 87186; 87205; 87206; 87210; 87804; 88305-TC; 88341-TC; 93005; 93010; 94002; 94010; 94640; 97116-GP; 97161-GP; 99285-25; C1751; C9803; G0480; J0131; J1644; P9058; U0003